=== PATIENT | female | born 1990 | race Caucasian/White ===

== ENCOUNTER 2022-09-17 16:04 | Emergency (ER) | payer BC, OTHER ==
[2022-09-17 16:13] VITALS: BP 122/72; PULSE 65; RESP 18; TEMP 98.2; BMI 32.5
[2022-09-17] MEDS ORDERED: IBUPROFEN 600 MG TABLET (FP) PO ONE (17:43)
== END 2022-09-17 18:27 | disposition home or self-care (01) ==
LOC: JERFT 16:04
DX: S93.491A Sprain of other ligament of right ankle, initial encounter (principal); M25.571 Pain in right ankle and joints of right foot; R22.41 Localized swelling, mass and lump, right lower limb; X50.1XXA Overexertion from prolonged static or awkward postures, initial encounter; Y93.01 Activity, walking, marching and hiking
CPT/HCPCS: 73610-TC-RT-FY; 99283-25